=== PATIENT | male | born 1940 | race Caucasian/White ===

== ENCOUNTER 2018-09-27 08:43 | Observation (INO) | payer MEDICARE, OTHER ==
[~2018-09-27] VITALS: Ht 185.4 cm; Wt 72.7 kg
[2018-09-27 09:00] LABS: BASOPHILS # (AUTO) 0.1 10^3/uL (0.0-0.1); BASOPHILS % (AUTO) 1 % (0-10); EOSINOPHILS % (AUTO) 1 % (0-10); HEMATOCRIT 26 % (40-54); HEMOGLOBIN 8.6 G/DL (13.3-17.7); LYMPHOCYTES # (AUTO) 0.7 X 10^3 (1.0-4.0); LYMPHOCYTES % (AUTO) 15 % (12-44); MEAN CORPUSCULAR HEMOGLOBIN 33 PG (25-34); MEAN CORPUSCULAR HGB CONC 33 G/DL (32-36); MEAN CORPUSCULAR VOLUME 100 FL (80-99); MEAN PLATELET VOLUME 10.7 FL (7.4-10.4); MONOCYTES # (AUTO) 0.4 X 10^3 (0.0-1.0); MONOCYTES % (AUTO) 9 % (0-12); NEUTROPHILS # (AUTO) 3.5 X 10^3 (1.8-7.8); NEUTROPHILS % (AUTO) 75 % (42-75); RED CELL DISTRIBUTION WIDTH 23.8 % (10.0-14.5); WHITE BLOOD COUNT 4.7 10^3/uL (4.3-11.0)
[2018-09-27 09:02] LABS: PLATELET COUNT 37 10^3/uL (130-400)
[2018-09-27] MEDS ORDERED: NS IV 1000 ML 1,000 ML IV ONE (09:05)
[2018-09-27] MEDS ORDERED: TETANUS,DIPTH,PERTUSS P/F (BOOSTRIX) 0.5 ML VIAL IM ONE (09:15)
[2018-09-27 09:21] LABS: ALANINE AMINOTRANSFERASE < 6 U/L (0-55); ALBUMIN 3.3 GM/DL (3.2-4.5); ALKALINE PHOSPHATASE 50 U/L (40-136); BILIRUBIN,TOTAL 0.7 MG/DL (0.1-1.0); BUN/CREATININE RATIO 25; CALCIUM 8.7 MG/DL (8.5-10.1); CARBON DIOXIDE 23 MMOL/L (21-32); CHLORIDE 103 MMOL/L (98-107); CREATININE SERUM 1.01 MG/DL (0.60-1.30); GFR ESTIMATED > 60; GLUCOSE 93 MG/DL (70-105); MAGNESIUM 1.9 MG/DL (1.8-2.4); POTASSIUM 4.2 MMOL/L (3.6-5.0); SODIUM 133 MMOL/L (135-145); TOTAL PROTEIN 5.4 GM/DL (6.4-8.2)
--- NOTE | 2018-09-27 09:39 | ED General ---
General Chief Complaint: General Problems/Pain Stated Complaint: WEAKNESS Nursing Triage Note: TO ED PER [facility] FROM SON'S HOUSE. HE HAD GOT UP TO BATHROOM AND FEEL. EMS REPORTS THAT FAMILY SAID HE HAS BEEN WEAK. DAUGHTER IN LAW REPORTS THAT HE HAS HAD FELL AND WAS TAKEN TO [facility] AND FOUND OUT THAT MARISOL WAS TRANSFER TO [facility] FOR CARE. FAMILY GIVES POOR PMH AND PATIENT CAN NOT GIVE PMH. HAS AREA ON SIDE OF NECK THAT APPEARS TO BE A SCRATCH. Nursing Sepsis Screen: No Definite Risk Source of Information: Patient, EMS, Family Exam Limitations: No Limitations History of Present Illness Date Seen by Provider: Sep 27, 2018 Time Seen by Provider: 08:44 Initial Comments This 78-year-old gentleman presents to the emergency room via [facility] after having a fall at his son's home. Patient has been visiting family for a daughter's graduation, but he lives in [place]. Family reports he recently had a syncopal episode September 08 and was seen at [facility]. He was found to have a WBC count greater than 200,000. He was transferred to [place] for hematology/oncology treatment. He has been placed on oral chemotherapy by Dr. Benita Dukes. A bone marrow biopsy was reportedly done at [facility] in [place]. Family does not know the exact diagnosis. 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 Patient went to the restroom this morning and could not get himself back to bed. He then had a fall striking the left side of his face and scratching his right neck. Patient states his legs feel very weak and sometimes feel numb. He has no local primary care provider but family was hoping to get him in with Dr. Tanner. Patient is disoriented to place and date, and he is a confused historian. Allergies and Home Medications Allergies Coded Allergies: No Known Drug Allergies (Unverified , 09/27/18) Home Medications Allopurinol 300 Mg Tablet, 300 MG PO DAILY, (Reported) Amiodarone HCl 200 Mg Tablet, 200 MG PO 1800, (Reported) Aspirin 325 Mg Tablet.dr, 325 MG PO 1800, (Reported) Carbidopa/Levodopa 1 Each Capsule.er, 4 CAP PO 1800, (Reported) Cholecalciferol (Vitamin D3) 1,000 Unit Capsule, 1,000 UNIT PO 1800, (Reported) Citalopram Hydrobromide 40 Mg Tablet, 40 MG PO 1800, (Reported) Clopidogrel Bisulfate 75 Mg Tablet, 75 MG PO 1800, (Reported) Cranberry Extract/Vit C 1 Each Capsule, 2 CAP PO 1800, (Reported) Docusate Sodium 100 Mg Capsule, 300-400 MG PO 1800, (Reported) Fish Oil/Dha/Epa 1 Each Capsule, 1,200 MG PO 1800, (Reported) Hydroxyurea 500 Mg Capsule, 1,000 MG PO BID, (Reported) Levetiracetam 750 Mg Tablet, 750 MG PO 1800, (Reported) Levothyroxine Sodium 100 Mcg Tablet, 100 MCG PO 1800, (Reported) Lovastatin 40 Mg Tablet, 40 MG PO 1800, (Reported) Melatonin 3 Mg Tab.rapdis, 12 MG PO HS PRN for SLEEP, (Reported) Psyllium Husk 0.52 Gm Capsule, 2 CAP PO 1800, (Reported) [Terpenes Cbd Oil] , 2 DROPS PO HS, (Reported) Patient Home Medication List Home Medication List Reviewed: Yes Review of Systems Review of Systems Constitutional: see HPI, weakness EENTM: see HPI Respiratory: no symptoms reported Cardiovascular: no symptoms reported Gastrointestinal: no symptoms reported Genitourinary: other (patient uses a bladder stimulator) Musculoskeletal: see HPI Skin: see HPI Psychiatric/Neurological: See HPI Hematologic/Lymphatic: No Symptoms Reported Immunological/Allergic: no symptoms reported Past Ihtjeew-Eikuha-Bwgnnz Hx Past Med/Social Hx: Reviewed and Corrections made Patient Social History Alcohol Use: Denies Use Recreational Drug Use: No Smoking Status: Never a Smoker 2nd Hand Smoke Exposure: No Recent Foreign Travel: No Contact w/Someone Who Travel: No Recent Infectious Disease Expo: No Past Medical History Surgeries: Yes (skin cancer resection from the nose) Bladder Surgery (bladder stimulator), Cardiac (ablation), CABG, Coronary Stent, Orthopedic (hip with hardware, back), Vascular Surgery (IVC filter) Respiratory: No Cardiac: Yes Coronary Artery Disease, Hypertension Neurological: Yes Dementia, Seizure Disorder, Stroke Genitourinary: Yes Gastrointestinal: Yes Chronic Constipation Musculoskeletal: Yes Gout Endocrine: Yes Hypothyroidsim HEENT: No Cancer: Yes Leukemia, Skin Did You Recieve Any Treatments: Yes What Type of Treatment Did You: Chemotherapy, Surgical Intervention Psychosocial: No Integumentary: No Physical Exam Vital Signs Vital Signs - First Documented 09/27/18 08:44 Temp 98.0 Pulse 60 Resp 18 B/P (MAP) 106/58 (74) Pulse Ox 99 O2 Delivery Room Air Capillary Refill : Less Than 3 Seconds Height, Weight, BMI Height: 6'" Weight: 160lbs. oz. 72.026092bk; BMI Method:Estimated General Appearance: WD/WN, Other (very weak) HEENT: PERRL/EOMI, Other (mucous membranes dry. Hole in the left nose from cancer resection) Neck: Non Tender, Other (scratch on the right lateral neck) Respiratory: Lungs Clear, Normal Breath Sounds, No Accessory Muscle Use, No Respiratory Distress Cardiovascular: Regular Rate, Rhythm, No Edema, No Murmur Gastrointestinal: Normal Bowel Sounds, Non Tender, Soft Extremity: Normal Inspection, Non Tender, No Pedal Edema, Other (no hip pain with palpation or rotation) Neurologic/Psychiatric: Alert, Normal Mood/Affect, Motor Weakness (generalized) Skin: Normal Color, Warm/Dry, Other (abrasion and bruising on the left cheek. Scrape on the right neck) Progress/Results/Core Measures Suspected Sepsis Recent Fever Within 48 Hours: No Infection Criteria Present: None New/Unexplained Altered Menta: No Sepsis Screen: No Definite Risk SIRS Temperature:98.0 Pulse: 60 Respiratory Rate: 18 Laboratory Tests 09/27/18 08:50: White Blood Count 4.7 Blood Pressure 106 /58 Mean: 74 Laboratory Tests 09/27/18 08:50: Creatinine 1.01, Platelet Count 37*L, Total Bilirubin 0.7 Results/Orders Lab Results Laboratory Tests Test 09/27/18 08:50 09/27/18 10:50 Range/Units White Blood Count 4.7 4.3-11.0 10^3/uL Red Blood Count 2.63 L 4.35-5.85 10^6/uL Hemoglobin 8.6 L 13.3-17.7 G/DL Hematocrit 26 L 40-54 % Mean Corpuscular Volume 100 H 80-99 FL Mean Corpuscular Hemoglobin 33 25-34 PG Mean Corpuscular Hemoglobin Concent 33 32-36 G/DL Red Cell Distribution Width 23.8 H 10.0-14.5 % Platelet Count 37 *L 130-400 10^3/uL Mean Platelet Volume 10.7 H 7.4-10.4 FL Neutrophils (%) (Auto) 75 42-75 % Lymphocytes (%) (Auto) 15 12-44 % Monocytes (%) (Auto) 9 0-12 % Eosinophils (%) (Auto) 1 0-10 % Basophils (%) (Auto) 1 0-10 % Neutrophils # (Auto) 3.5 1.8-7.8 X 10^3 Lymphocytes # (Auto) 0.7 L 1.0-4.0 X 10^3 Monocytes # (Auto) 0.4 0.0-1.0 X 10^3 Eosinophils # (Auto) 0.0 0.0-0.3 10^3/uL Basophils # (Auto) 0.1 0.0-0.1 10^3/uL Sodium Level 133 L 135-145 MMOL/L Potassium Level 4.2 3.6-5.0 MMOL/L Chloride Level 103 98-107 MMOL/L Carbon Dioxide Level 23 21-32 MMOL/L Anion Gap 7 5-14 MMOL/L Blood Urea Nitrogen 25 H 7-18 MG/DL Creatinine 1.01 0.60-1.30 MG/DL Estimat Glomerular Filtration Rate > 60 BUN/Creatinine Ratio 25 Glucose Level 93 70-105 MG/DL Calcium Level 8.7 8.5-10.1 MG/DL Corrected Calcium 9.3 8.5-10.1 MG/DL Magnesium Level 1.9 1.8-2.4 MG/DL Total Bilirubin 0.7 0.1-1.0 MG/DL Aspartate Amino Transf (AST/SGOT) 14 5-34 U/L Alanine Aminotransferase (ALT/SGPT) < 6 0-55 U/L Alkaline Phosphatase 50 40-136 U/L Total Protein 5.4 L 6.4-8.2 GM/DL Albumin 3.3 3.2-4.5 GM/DL Thyroid Stimulating Hormone (TSH) 2.26 0.35-4.94 UIU/ML Free Thyroxine 1.14 0.70-1.48 NG/DL Urine Color YELLOW Urine Clarity CLEAR Urine pH 6.5 5-9 Urine Specific [place] 1.010 L 1.016-1.022 Urine Protein NEGATIVE NEGATIVE Urine Glucose (UA) NEGATIVE NEGATIVE Urine Ketones NEGATIVE NEGATIVE Urine Nitrite NEGATIVE NEGATIVE Urine Bilirubin NEGATIVE NEGATIVE Urine Urobilinogen NORMAL NORMAL MG/DL Urine Leukocyte Esterase NEGATIVE NEGATIVE Urine RBC (Auto) 2+ H NEGATIVE Urine RBC 2-5 H /HPF Urine WBC NONE /HPF Urine Squamous Epithelial Cells 0-2 /HPF Urine Crystals NONE /LPF Urine Bacteria TRACE /HPF Urine Casts NONE /LPF Urine Mucus NEGATIVE /LPF Urine Culture Indicated NO My Orders Orders - JERRI MILLS MD Cbc With Automated Diff (09/27/18 08:50) Comprehensive Metabolic Panel (09/27/18 08:50) Magnesium (09/27/18 08:50) Ua Culture If Indicated (09/27/18 08:50) Ed Iv/Invasive Line Start (09/27/18 08:50) Thyroid Stimulating Hormone (09/27/18 08:59) Free T4 (Free Thyroxine) (09/27/18 08:59) Ns Iv 1000 Ml (Sodium Chloride 0.9%) (09/27/18 09:05) Ct Head/Cervical Spine Wo (09/27/18 09:05) Chest 1 View, Ap/Pa Only (09/27/18 09:05) Pelvis (09/27/18 09:05) Dipht,Pertuss(Acell),Tet Adult (Boostrix (09/27/18 09:15) Medications Given in ED Current Medications Medications Dose Ordered Sig/Alfredo Route Start Time Stop Time Status Last Admin Dose Admin Diphtheria/ Tetanus/Acell Pertussis 0.5 ml ONCE ONCE IM 09/27/18 09:15 09/27/18 09:16 DC 09/27/18 10:00 0.5 ML Sodium Chloride 1,000 ml @ 0 mls/hr Q0M ONCE IV 09/27/18 09:05 09/27/18 09:08 DC 09/27/18 10:00 1,000 MLS/HR Vital Signs/I&O 09/27/18 08:44 Temp 98.0 Pulse 60 Resp 18 B/P (MAP) 106/58 (74) Pulse Ox 99 O2 Delivery Room Air Capillary Refill : Less Than 3 Seconds Blood Pressure Mean: 74 Progress Note : Progress Note Patient was found to have thrombocytopenia and anemia. He was unable to bear weight on his own to stand to provide a urine specimen. He is generally quite weak. There were no major abnormalities with his chemistry. CT of the head and C-spine and x-rays of the chest and pelvis showed no injuries. There was questionable infiltrate on the chest x-ray, but pneumonia does not correlate with labs or vitals. The chest x-ray findings are likely due to atelectasis. Case was discussed with Dr. Mckenzie who is agreeable to admission. Patient was cleared from a trauma perspective with CT imaging. Dr. Sher was consulted for hematology. A records request from [facility] in [place] was placed on the admission orders. Patient requested a DO NOT RESUSCITATE status. Diagnostic Imaging Diagonstic Imaging: Xray Plain Films/CT/US/NM/MRI: chest Comments Chest x-ray viewed by me and report reviewed. See report below: NAME: ELVIS RAMOS [facility] REC#: [id number] PT STATUS: REG ER : 1940 PHYSICIAN: JERRI MILLS MD ADMIT DATE: 09/27/18/ER Draft Date of Exam:09/27/18 CHEST 1 VIEW, AP/PA ONLY EXAMINATION: Supine AP chest at 9:50 a.m. INDICATION: Weakness. COMPARISON: There are no prior studies available for comparison. FINDINGS: The heart size is within normal limits. There are a few crowded bronchovascular markings in the left infrahilar region. The possibility that there is an element of mild pneumonia/atelectasis in this area should be considered. The lungs are otherwise clear. There is no pleural effusion noted. The mediastinum is not widened. The osseous structures are intact. There are number of small radiopaque densities overlying the lower thoracic spine. These are of uncertain etiology. If further evaluation is desired, then a followup PA and lateral chest would be recommended. IMPRESSION: 1. There is a question of mild pneumonia/atelectasis in the left infrahilar region. Clinical followup is recommended. 2. There is no acute cardiopulmonary abnormality noted, otherwise. 3. The radiopaque densities overlying the lower thoracic spine are of uncertain etiology. Recommendations as above. Dictated on workstation # [id number] Dict: 09/27/18 1001 Trans: 09/27/18 1014 [id number] [id number] Interpreted by: PAKO BARRERA MD Diagonstic Imaging: Xray Plain Films/CT/US/NM/MRI: pelvis Comments Pelvis x-ray viewed by me and report reviewed. See report below: NAME: ELVIS RAMOS MED REC#: [id number] PT STATUS: REG ER : 1940 PHYSICIAN: JERRI MILSL MD ADMIT DATE: 09/27/18/ER Draft Date of Exam:09/27/18 PELVIS EXAMINATION: Pelvis at 940h. INDICATION: Weakness A single AP view of the pelvis is obtained. There are no prior studies available for comparison. There is no fracture, dislocation or acute bony abnormality evident. There is moderate degenerative disease involving the hip joints and there is mild symmetrical scoliosis of the sacral iliac joints. The soft tissues are unremarkable. There are orthopedic fixation rods overlying L4 and L5. There is also a dorsal stimulator device in place with the battery pack overlying the right ilium and the lead overlying the left sacrum. Another surgical wire is also seen to the right of the lower lumbar spine. IMPRESSION: There is no evidence for an acute bony abnormality. Dictated on workstation # [id number] Dict: 09/27/18 1003 Trans: 09/27/18 1010 [facility] [id number] Interpreted by: PAKO BARRERA MD Diagonstic Imaging: CT Comments CT head and cervical spine viewed by me and report reviewed. See report below: NAME: ELVIS RAMOS MED REC#: [id number] PT STATUS: REG ER : 1940 PHYSICIAN: JERRI MILLS MD ADMIT DATE: 09/27/18/ER Draft Date of Exam:09/27/18 CT HEAD/CERVICAL SPINE WO CLINICAL INDICATION: Patient is weak, been falling and has hit head when falling. EXAM: Head CT without IV contrast. Axial CT scan of the cervical spine with sagittal and coronal reformations. COMPARISON: None. FINDINGS: Head CT: There is no evidence of acute cerebral infarct, intracranial hemorrhage, or gross mass effect. There is diffuse brain parenchymal volume loss seen. There are a few focal and patchy areas of low-attenuation white matter changes involving both cerebral hemispheres, likely representing chronic small vessel ischemic disease. There is normal bustos-white matter distinction. There is no significant midline shift or herniation. There is no evidence of hydrocephalus. The basal cisterns are unremarkable. The skull, extracranial soft tissue, and orbits are unremarkable. There is a small air-fluid level and moderate mucosal thickening involving the right maxillary sinus. There is mild mucosal thickening involving the ethmoid sinus and left maxillary sinus. Temporal bones show no significant abnormality. Cervical spine: There is no acute cervical spine fracture or dislocation. There are moderately hypertrophic spurs seen throughout the cervical spine and facet arthropathy. There is severe left C3-C4 neuroforamen narrowing and moderate right C3-C4 neuroforamen narrowing and right C4-C5 neuroforamen narrowing due to uncinate spurs and facet arthropathy. There is at least moderate central canal stenosis at the C2-C3, C3-C4, and [id number] central canal stenosis involving the C4-C5 and C5-C6 levels due to diffuse disc bulges, disc spurs, and facet arthropathy. The neck soft tissue structures show no significant abnormality. Visualized upper lung tavarez show mild atelectasis and/or scarring. IMPRESSION: 1: Age-related brain parenchymal changes with no evidence of acute intracranial process. There is no skull fracture. 2: Cervical spine degenerative disease with no acute fracture or dislocation. Dictated on workstation # [id number] Dict: 09/27/18 0951 Trans: 09/27/18 1005 AS6 [id number] Interpreted by: RAFAL GUTIERRES MD Departure Communication (Admissions) Time/Spoke to Admitting Phy: 11:30 Dr. Mckenzie Time/Spoke to Consulting Phy: 11:35 Dr. Sher Impression Primary Impression: CML (chronic myelocytic leukemia) Additional Impressions: Generalized weakness Multiple falls Thrombocytopenia Anemia Qualified Codes: D64.9 - Anemia, unspecified Multiple abrasions Disposition: ADMITTED INPATIENT Condition: Improved Admissions Decision to Admit Reason: Admit from ER (General) Decision to Admit/Date: Sep 27, 2018 Time/Decision to Admit Time: 11:25 JERRI MILLS MD Sep 27, 2018 09:39
[2018-09-27 09:42] LABS: FREE T4 (FREE THYROXINE) 1.14 NG/DL (0.70-1.48)
--- NOTE | 2018-09-27 09:45 | NUR ---
MED RECONCILE TECH CALLED TO COME REVIEW MEDS. WITH FAMILY.
--- NOTE | 2018-09-27 10:06 | Diagnostic Imaging Report ---
CLINICAL INDICATION: Patient is weak, been falling and has hit head when falling. EXAM: Head CT without IV contrast. Axial CT scan of the cervical spine with sagittal and coronal reformations. COMPARISON: None. FINDINGS: Head CT: There is no evidence of acute cerebral infarct, intracranial hemorrhage, or gross mass effect. There is diffuse brain parenchymal volume loss seen. There are a few focal and patchy areas of low-attenuation white matter changes involving both cerebral hemispheres, likely representing chronic small vessel ischemic disease. There is normal bustos-white matter distinction. There is no significant midline shift or herniation. There is no evidence of hydrocephalus. The basal cisterns are unremarkable. The skull, extracranial soft tissue, and orbits are unremarkable. There is a small air-fluid level and moderate mucosal thickening involving the right maxillary sinus. There is mild mucosal thickening involving the ethmoid sinus and left maxillary sinus. Temporal bones show no significant abnormality. Cervical spine: There is no acute cervical spine fracture or dislocation. There are moderately hypertrophic spurs seen throughout the cervical spine and facet arthropathy. There is severe left C3-C4 neuroforamen narrowing and moderate right C3-C4 neuroforamen narrowing and right C4-C5 neuroforamen narrowing due to uncinate spurs and facet arthropathy. There is at least moderate central canal stenosis at the C2-C3, C3-C4, and [id number] central canal stenosis involving the C4-C5 and C5-C6 levels due to diffuse disc bulges, disc spurs, and facet arthropathy. The neck soft tissue structures show no significant abnormality. Visualized upper lung tavarez show mild atelectasis and/or scarring. IMPRESSION: 1: Age-related brain parenchymal changes with no evidence of acute intracranial process. There is no skull fracture. 2: Cervical spine degenerative disease with no acute fracture or dislocation. Dictated by: Dictated on workstation # [id number]
[2018-09-27] MEDS ORDERED: CLOP75TA69 PO (10:09)
[2018-09-27] MEDS ORDERED: AMIO200T4 PO (10:09)
[2018-09-27] MEDS ORDERED: ASPI325T32 PO (10:09)
[2018-09-27] MEDS ORDERED: LEVO100T7 PO (10:09)
[2018-09-27] MEDS ORDERED: MELA3TAB52 PO (10:09)
[2018-09-27] MEDS ORDERED: CHOL10007 PO (10:09)
[2018-09-27] MEDS ORDERED: DOCU-143 PO (10:09)
[2018-09-27] MEDS ORDERED: FISH1CAP15 PO (10:09)
[2018-09-27] MEDS ORDERED: ALLO300T2 PO (10:09)
[2018-09-27] MEDS ORDERED: LEVE750T5 PO (10:09)
[2018-09-27] MEDS ORDERED: CRAN1CAP5 PO (10:09)
[2018-09-27] MEDS ORDERED: HYDR500C2 PO (10:09)
[2018-09-27] MEDS ORDERED: [UNRECOGNIZED DRUG - CODE] PO (10:09)
[2018-09-27] MEDS ORDERED: [UNRECOGNIZED DRUG - OTHER] PO (10:09)
[2018-09-27] MEDS ORDERED: CITA40TA11 PO (10:09)
[2018-09-27] MEDS ORDERED: LOVA40TA2 PO (10:09)
[2018-09-27] MEDS ORDERED: CARB1CAP5 PO (10:09)
--- NOTE | 2018-09-27 10:11 | Diagnostic Imaging Report ---
EXAMINATION: Pelvis at 940h. INDICATION: Weakness A single AP view of the pelvis is obtained. There are no prior studies available for comparison. There is no fracture, dislocation or acute bony abnormality evident. There is moderate degenerative disease involving the hip joints and there is mild symmetrical scoliosis of the sacral iliac joints. The soft tissues are unremarkable. There are orthopedic fixation rods overlying L4 and L5. There is also a dorsal stimulator device in place with the battery pack overlying the right ilium and the lead overlying the left sacrum. Another surgical wire is also seen to the right of the lower lumbar spine. IMPRESSION: There is no evidence for an acute bony abnormality. Dictated by: Dictated on workstation # [id number]
--- NOTE | 2018-09-27 10:14 | Diagnostic Imaging Report ---
EXAMINATION: Supine AP chest at 9:50 a.m. INDICATION: Weakness. COMPARISON: There are no prior studies available for comparison. FINDINGS: The heart size is within normal limits. There are a few crowded bronchovascular markings in the left infrahilar region. The possibility that there is an element of mild pneumonia/atelectasis in this area should be considered. The lungs are otherwise clear. There is no pleural effusion noted. The mediastinum is not widened. The osseous structures are intact. There are number of small radiopaque densities overlying the lower thoracic spine. These are of uncertain etiology. If further evaluation is desired, then a followup PA and lateral chest would be recommended. IMPRESSION: 1. There is a question of mild pneumonia/atelectasis in the left infrahilar region. Clinical followup is recommended. 2. There is no acute cardiopulmonary abnormality noted, otherwise. 3. The radiopaque densities overlying the lower thoracic spine are of uncertain etiology. Recommendations as above. Dictated by: Dictated on workstation # [id number]
--- NOTE | 2018-09-27 10:36 | NUR ---
SPOKE WITH THE PATIENTS FAMILY THAT IS PRESENT WITH HIM REGARDING THE MEDICATIONS HE TAKES AT HOME. THEY HAVE ALL OF HIS BOTTLES HERE WELL THE PILL BOX FOR HIS EVENING MEDS. THEY ALSO HAVE A LIST FROM [facility] HOWEVER IT IS NOT COMPLETELY UP TO DATE WITH THE BOTTLES THEY BROUGHT IN. HE CAME TO [place] FROM [place] FOR A GRADUATION AND IT DOES NOT LOOK LIKE THEY WILL BE RETURNING TO [place] DUE TO THE CARE HE NEEDS. THEY USED [facility] IN [place] AND PLAN TO USE [facility] HERE IN [place] IN THE FUTURE. THEY DID HAVE TWO NEW PRESCRIPTIONS FILLED AT [facility] IN [place] WHICH THEY HAVE THE BOTTLES WITH THEM. ELDER IS HERE AND STATES HE TAKES ALL OF THE PILLS IN THE PILL ACTIVITIES COUNSELOR SHE HAS WITH HER AT DINNER TIME. THE ONLY THINGS HE TAKES IN THE MORNING ARE THE NEW ALLOPURINOL AND THE MORNING DOSE OF THE HYDROXYUREA WHICH ARE THE TWO NEW MEDS FROM [facility]. HE WAS TAKING METAMUCIL POWDER IN THE MORNING BUT THEY ARE GOING TO STOP THIS DUE TO HIM GOING TO THE BATHROOM FREQUENTLY, HE IS STILL TAKING THE METAMUCIL CAPSULES AT DINNER TIME. MARYANNE, A FRIEND OF THE FAMILY IS THE ONE WHO SETS UP THE PILL BOX AND GIVE THE MEDICATIONS TO THE PATIENT, SHE IS NOT HERE FOR THE INTERVIEW. ELDER STATES SHE IS FAMILIARIZING HERSELF WITH THE MEDS AND PLANS TO MAKE HER OWN DETAILED LIST AFTER THIS VISIT. [facility] BOTTLES: 09-15-18 ALLOPURINOL 300MG #30 09-15-18 HYDROXYUREA 500MG 2 BID #120 [email or web address] [id number] [place] BOTTLES: 08-25-18 LEVOTHYROXINE 100MCG DAILY #90 08-25-18 RYTARY ER 48.75-195MG 4 CAPSULES BID #240 (ONLY TAKES 4 CAPS AT DINNER TIME) 08-08-18 LOVASTATIN 40MG DAILY #90 08-08-18 CITALOPRAM 40MG DAILY #90 08-02-18 AMIODARONE 200MG DAILY #90 08-02-18 PLAVIX 75MG DAILY #90 08-02-18 LEVETIRACETAM 750MG DAILY #90 OTC MEDS: TERPENES CBD OIL 2 DROPS HS WAL-MUCIL 2 CAPS 1800 AZO CRANBERRY 2 1800 FISH OIL 1200MG 1 1800 VITAMIN D3 1000 1800 COLACE 100MG 3-4 1800 MELATONIN 12MG HS PRN ASPIRIN 325MG 1800
--- NOTE | 2018-09-27 10:38 | NUR ---
[employer] FRONT END DEVELOPER JAVASCRIPT HTML CSS TO BEDSIDE TO HELP PATIENT STAND TO OBTAIN UA.
[2018-09-27 11:05] LABS: BILIRUBIN,URINE NEGATIVE (NEGATIVE); CLARITY,URINE CLEAR; COLOR,URINE YELLOW; GLUCOSE, URINE (UA) NEGATIVE (NEGATIVE); KETONES,URINE NEGATIVE (NEGATIVE); LEUKOCYTE ESTERASE ,URINE NEGATIVE (NEGATIVE); NITRITE,URINE NEGATIVE (NEGATIVE); PH,URINE 6.5 (5-9); PROTEIN,URINE NEGATIVE (NEGATIVE); UROBILINOGEN,URINE NORMAL (NORMAL)
[2018-09-27 11:14] LABS: BACTERIA,URINE TRACE /HPF; SQUAMOUS EPITHELIAL CELL,UR 0-2 /HPF
--- NOTE | 2018-09-27 11:49 | NUR ---
CALLED FOR ROOM
--- NOTE | 2018-09-27 11:53 | NUR ---
TO ROOM PATIENT CON'T TO BEND ARM CAUSING FLUIDS NOT TO INFUSE. ARM STRAIGHTENED OUT FLUIDS INFUSING WITHOUT PROBLEM.
[2018-09-27 12:45] VITALS: BP 136/67
--- NOTE | 2018-09-27 12:45 | NUR ---
ELVIS AVALOS admitted to room 431-1, with an admitting diagnosis of THROMBOCYTOPENIA, ANEMIA, CML, GENERALIZED WEAKNESS, FALL, on 09/27/18 from ER via [facility], accompanied by STAFF AND FAMILY.ELVIS AVALOS introduced to surroundings, call light, bed controls, phone, TV, temperature control, lights, meal times, smoking policy, visitor policy, side rail policy, bathrooms and showers. Patient Rights given to patient in the handbook. ELVIS AVALOS'S FAMILY verbalizes understanding that [facility] is not responsible for the loss or damage to any personal effects or valuables that are kept in the patients posession during their hospitalization. ELVIS AVALOS'S FAMILY verbalizes understanding of Interdisciplinary Patient Education. Patient and/or family were informed about the Rapid Response Team and its purpose.
[2018-09-27] MEDS ORDERED: CATHETER FLUSH 10 ML SYR IV PRN (13:00)
[2018-09-27 13:47] VITALS: BP 136/67
--- NOTE | 2018-09-27 14:27 | Physical Therapy Evaluation ---
PT Evaluation-General Medical Diagnosis Admission Date Sep 27, 2018 at 11:54 Medical Diagnosis: CML/generalized weakness Onset Date: Sep 27, 2018 Therapy Diagnosis Therapy Diagnosis: debility Height/Weight Height (Feet): 6 Height (Inches): 1.00 Weight (Pounds): 160 Weight (Ounces): 3.0 Precautions Precautions/Isolations: Fall Prevention, Standard Precautions Weight Bear Status Right Lower Extremity: Right Weight Bearing/Tolerated Left Lower Extremity: Left Weight Bearing/Tolerated Referral Physician: Magaly Reason for Referral: Evaluation/Treatment Medical History Pertinent Medical History: CAD, CVA, Dementia, HTN, Hypothroidism Current History EMS from [facility] has been in [facility] then transferred to [place] secondary to Leukemia/multiple falls Reviewed History: Yes Social History Home: Single Level Current Living Status: Other Family Prior/[facility]ly [facility] Prior Level of Function Therapy Code Descriptions/Definitions Functional [place] [employer] Measure: 0=Not Assessed/NA 4=Minimal Assistance 1=Total Assistance 5=Supervision or Setup 2=Maximal Assistance 6=Modified [employer] 3=Moderate Assistance 7=Complete [employer] Therapy Quality Codes: 6 Independent with activity with or without an assistive device 5 Patient requires set up or clean up by helper. Patient completes activity by themselves 4 Supervision or touching assist (CGA). [place] provide cues , steadying assist 3 The helper provides less than half the effort to complete the activity 2 The helper provides more than half the effort to complete the activity 1 Dependent. The helper does all the effort to complete an activity 7 Patient refused to complete or attempt activity 9 The patient did not perform the activity before the current illness or injury 88 Not attempted due to Medical conditions or safety concerns Functional Abilities and Goals: Independent: Patient completed the activities by him/herself, with or without an assistive device, with no assistance from a helper. Needed Some Help: Patient needed partial assistance from another person to complete activities. Dependent: A helper completed the activities for the patient. Unknown: Not Applicable: Bed Mobility: 6 Transfers (B,C,W/C) (FIM): 6 Gait: 6 Indoor Mobility (Ambulation): Independent Prior Devices Use: Walker PT Evaluation-Current Subjective Patient reluctantly agrees to PT. Pain Numeric Pain Scale: 0-No Pain Location: No Pain Reported Objective Patient Orientation: Confused Problem Solving: Poor ROM/Strength ROM Lower Extremities bilateral LE WFL Strength Lower Extremities 4/5 grossly bilaterally Integumentary/Posture Integumentary multiple abrasions on face and neck Bowel Incontinence: No Bladder Incontinence: No Posture WFL Neuromuscular (Tone, Coordination, Reflexes) grossly intact Sensory Vision: Functional Hearing: Impaired Sensation Right Lower Extremit: Impaired Sensation Left Lower Extremity: Impaired Transfers Therapy Code Descriptions/Definitions Functional [employer] Measure: 0=Not Assessed/NA 4=Minimal Assistance 1=Total Assistance 5=Supervision or Setup 2=Maximal Assistance 6=Modified [employer] 3=Moderate Assistance 7=Complete [employer] Transfers (B, C, W/C) (FIM): 5 Scootin Rollin Supine to/from Sit: 5 Sit to/from Stand: 5 Gait Mode of Locomotion: Walk Anticipated Mode of Locomotion: Walk Gait (FIM): 1 Distance (FIM): 1=up to 49 ft Distance: 25' x 2 Gait Level of Assist: 4 Gait Persons Needed: 1 Gait Assistive Device: FWW Comments/Gait Description shuffle gait sequence with FWW use Balance Sitting Static: Normal Sitting Dynamic: Normal Standing Static: Fair Standing Dynamic: Fair Assessment/Needs 78 y.o. male, benefit from skilled PT to address functional strength and mobility to improve current LOF. Patient is limited due to confusion and difficulty following simple direction. Patient is at a high fall risk and chair alarm is set and activated. Rehab Potential: Fair PT [facility] Goals Senior Office Assistant Goals PT Senior Office Assistant Goals Time Frame: Oct 08, 2018 Transfers (B,C,W/C) (FIM): 6 Gait (FIM): 6 Gait distance (FIM): 3=150 ft Distance: 250' Gait Level of Assist: 6 Gait Assistive Device: FWW PT Plan Problem List Problem List: Activity Tolerance, Functional Strength, Safety, Balance, Gait, Transfer, Bed Mobility Treatment/Plan Treatment Plan: Continue Plan of Care Treatment Plan: Bed Mobility, Education, Functional Activity Jefry, Functional Strength, Gait, Safety, Therapeutic Exercise, Transfers Treatment Duration: Oct 08, 2018 Frequency: 6 times per week Estimated Hrs Per Day: .25 hour per day Patient and/or Family Agrees t: Yes Safety Risks/Education Patient Education: Safety Issues Teaching Recipient: Patient Teaching Methods: Demonstration, Discussion Response to Teaching: Reinforcement Needed Discharge Recommendations Therapy D/C Recommendations: Detention Placement, [facility] (TCU/NH) Time/GCodes Time In: 1320 Time Out: 1343 Total Billed Treatment Time: 23 Total Billed Treatment 1 visit EVModC 23 min CJ ALVAREZ PT Sep 27, 2018 14:27
--- NOTE | 2018-09-27 14:33 | Occupational Therapy Eval ---
OT Evaluation-General/PLF Medical Diagnosis Admission Date Sep 27, 2018 at 11:54 Medical Diagnosis: CML/generalized weakness Onset Date: Sep 27, 2018 Therapy Diagnosis Therapy Diagnosis: impaired ADLs and mobility Height/Weight Height (Feet): 6 Height (Inches): 1.00 Weight (Pounds): 160 Weight (Ounces): 3.0 Precautions Precautions/Isolations: Fall Prevention, Standard Precautions Weight Bear Status Weight Bearing Restriction: Weight Bearing/Tolerated Referral Referral Reason: Activity Tolerance, Self Care, Evaluation/Treatment, Strengthening/ROM Medical History Pertinent Medical History: DM Additional Medical History Surgeries: Yes (skin cancer resection from the nose) Bladder Surgery (bladder stimulator), Cardiac (ablation), CABG, Coronary Stent, Orthopedic (hip with hardware, back), Vascular Surgery (IVC filter) Respiratory: No Cardiac: Yes Coronary Artery Disease, Hypertension Neurological: Yes Dementia, Seizure Disorder, Stroke Genitourinary: Yes Gastrointestinal: Yes Chronic Constipation Musculoskeletal: Yes Gout Endocrine: Yes Hypothyroidsim HEENT: No Cancer: Yes Leukemia, Skin Did You Recieve Any Treatments: Yes What Type of Treatment Did You: Chemotherapy, Surgical Intervention Psychosocial: No Integumentary: No Current History per H&P: "his 78-year-old gentleman presents to the emergency room via [facility] after having a fall at his son's home. Patient has been visiting family for a daughter's graduation, but he lives in [place]. Family reports he recently had a syncopal episode September 08 and was seen at [place]. He was found to have a WBC count greater than 200,000. He was transferred to [place] for hematology/oncology treatment. He has been placed on oral chemotherapy by Dr. Benita Dukes. A bone marrow biopsy was reportedly done at [place] in [place]. Family does not know the exact diagnosis. 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 P atient went to the restroom this morning and could not get himself back to bed. He then had a fall striking the left side of his face and scratching his right neck. Patient states his legs feel very weak and sometimes feel numb. He has no local primary care provider but family was hoping to get him in with Dr. Tanner. Patient is disoriented to place and date, and he is a confused historian. " Reviewed History: Yes Social History pt poor historian and not oriented. pt lives n [place] and was visiting family. pt stated he quijano not know where he will d/c to . ADL-Prior Level of Function Therapy Code Descriptions/Definitions Functional [place] Measure: 0=Not Assessed/NA 4=Minimal Assistance 1=Total Assistance 5=Supervision or Setup 2=Maximal Assistance 6=Modified [place] 3=Moderate Assistance 7=Complete [place] Therapy Quality Codes: 6 Independent with activity with or without an assistive device 5 Patient requires set up or clean up by helper. Patient completes activity by themselves 4 Supervision or touching assist (CGA). [place] provide cues , steadying ass ist 3 The helper provides less than half the effort to complete the activity 2 The helper provides more than half the effort to complete the activity 1 Dependent. The helper does all the effort to complete an activity 7 Patient refused to complete or attempt activity 9 The patient did not perform the activity before the current illness or injury 88 Not attempted due to Medical conditions or safety concerns Functional Abilities and Goals: Independent: Patient completed the activities by him/herself, with or without an assistive device, with no assistance from a helper. Needed Some Help: Patient needed partial assistance from another person to complete activities. Dependent: A helper completed the activities for the patient. Unknown: Not Applicable: Self Care: Independent Functional Cognition: Independent DME/Equipment: [address] Self: No OT Current Status Subjective pt laying in be upon OT arrival in no apparent distress. pt agreed to OT evaluation session. pt complains on 2/10 abdomen pain. NSG aware. Mental Status/Objective Patient Orientation: Person Current Glasses/Contacts: Yes Hearing Aids: No ([place]) Dentures/Partials: Yes Hand Dominance: Right Upper Extremity ROM WFL Upper Extremity Coordination WFL Upper Extremity Sensation WFL Upper Extremity Strength MMT 4-/5 macarena UE ADL-Treatment Therapy Code Descriptions/Definitions Functional [place] Measure: 0=Not Assessed/NA 4=Minimal Assistance 1=Total Assistance 5=Supervision or Setup 2=Maximal Assistance 6=Modified [place] 3=Moderate Assistance 7=Complete [place] Therapy Quality Codes: 6 Independent with activity with or without an assistive device 5 Patient requires set up or clean up by helper. Patient completes activity by themselves 4 Supervision or touching assist (CGA). [place] provide cues , steadying assist 3 The helper provides less than half the effort to complete the activity 2 The helper provides more than half the effort to complete the activity 1 Dependent. The helper does all the effort to complete an activity 7 Patient refused to complete or attempt activity 9 The patient did not perform the activity before the current illness or injury 88 Not attempted due to Medical conditions or safety concerns Transfers (B, C, W/C) (FIM): 4 pt required TA to perform LB dressing, CGA for functional transfers using RW, and set up for eating and grooming. noted pt is confused. pt complains of dizziness while performing functional mobility. Education OT Patient Education: Progress toward Goal/Update tx plan, Purpose of tx/functional activities Teaching Recipient: Patient Teaching Methods: Discussion Response to Teaching: Verbalize Understanding OT Short Term Goals Short Term Goals Grooming(FIM): 5 Bathing(FIM): 5 Lower Body Dressing(FIM): 5 Toileting(FIM): 5 Transfers (B,C,W/C) (FIM): 5 Toilet/Commode Transfer(FIM): 5 1=Demonstrate adherence to instructed precautions during ADL tasks. 2=Patient will verbalize/demonstrate understanding of assistive devices/modifications for ADL. 3=Patient will improve strength/tolerance for activity to enable patient to perform ADL's. OT Senior Care Goals Senior Care Goals Eating (FIM): 6 Grooming(FIM): 6 Bathing(FIM): 6 Bathing Location: L Arm, R Arm, L Upper Leg, R Upper Leg, L Lower Leg (including foot), R Lower Leg (including foot), Chest, Abdomen, Buttocks, Perineal Area Lower Body Dressing(FIM): 6 Toileting(FIM): 6 Transfers (B,C,W/C) (FIM): 6 Toilet/Commode Transfer(FIM): 6 Additional Goals: 1-Demonstrate ADL Tasks, 2-Verbalize Understanding, 3- ImproveStrength/Jefry 1=Demonstrate adherence to instructed precautions during ADL tasks. 2=Patient will verbalize/demonstrate understanding of assistive devices/ modifications for ADL. 3=Patient will improve strength/tolerance for activity to enable patient to perform ADL's. OT Education/Plan Problem List/Assessment Assessment: Decreased Activ Tolerance, Decreased Safety Aware, Decreased UE Strength, Impaired Coordination, Impaired Funct Balance, Impaired I ADL's pt presents with functional limitations affecting areas of ADL/ functional transfer with above mention deficits. pt would benefit from OT services to increase independence with ADLs/ functional transfers. Discharge Recommendations Plan/Recommendations: Continue POC Barriers to Progress cognition Treatment Plan/Plan of Care Treatment,Training & Education: Yes Patient would benefit from OT for education, treatment and training to promote independence in ADL's, mobility, safety and/or upper extremity function for ADL's. Treatment Duration: Oct 11, 2018 Frequency: 5 times per week Estimated Hrs Per Day: .25 hour per day Agreement: Yes Rehab Potential: Fair Time/GCodes Start Time: 14:05 Stop Time: 14:30 Billed Treatment Time EVM 25 minutes NGOZI FRANCIS OT Sep 27, 2018 14:33
[2018-09-27] MEDS: CATHETER FLUSH 10 ML SYR IV SCH ×2 (15:00→20:33)
[2018-09-27 15:25] VITALS: BP 133/58
--- NOTE | 2018-09-27 19:29 | CONSULTATION REPORT ---
DATE OF SERVICE: 09/27/2018 The patient is admitted to room 431. REFERRING PHYSICIAN: Luke Mckenzie MD IMPRESSION: 1. An 78-year-old male, admitted to the hospital with increasing weakness and fall at home. 2. Significant dementia and the patient is unable to give any detailed history. 3. Per family, the patient was recently diagnosed with leukemia. He had a bone marrow aspiration and biopsy done at [facility] in [place], [place] approximately 2 weeks ago. Following this, he was started on hydroxyurea 1000 mg twice daily, which he has been taking until last night. 4. Thrombocytopenia and borderline leukopenia as well as anemia, probably related to hydroxyurea use. 5. No other medical history available. RECOMMENDATIONS: 1. Obtain the pathology report from bone marrow aspiration and biopsy done two weeks ago at [facility] in [place], [place]. 2. Hold hydroxyurea because of the pancytopenia. 3. Continue supportive care with IV hydration gently along with PT/OT for strengthening. 4. Agree with maintaining the patient as a DNR. 5. Once the pathology report from the bone marrow aspiration and biopsy is available, I will make further recommendations as to the prognosis and treatment options. BRIEF HISTORY: The patient is an 78-year-old male who was brought to the emergency room after having a fall at home. He previously lived in [place] most of his life, but recently came to [place], [place] to attend his granddaughter's high school graduation. He became sick while he was here and was taken to [facility] in [place]. He was sent to [facility] in [place] where he was admitted and underwent a workup including bone marrow aspiration and biopsy. Following this, he was started on hydroxyurea 1000 mg twice daily. Since then, he was becoming weaker and had a fall at home following which he was brought to [facility]. The patient is unable to provide any detailed history because of dementia. His granddaughter is in the room at the time of evaluation and provided most of the history. The patient's son who lives in [place], [place] is his medical power of attorney general, but he is in [place] now. According to his granddaughter, the patient has had worsening dementia for several years. He was also noted to have an elevated white count for some time, but was not on any treatment or did not undergo any evaluation while in [place]. Rest of the past medical history is not available. No details on prior surgical history also. SOCIAL HISTORY: The patient is and was living [place]. He served in the [place] for two years and since then has worked different jobs including in the [employer], as a master welder and as a salesman. Unable to obtain any history of exposure to chemicals during his line of work. He has 8 children, were [place]. Details of family history was not available today. PHYSICAL EXAMINATION: GENERAL: Today showed an elderly male, awake, but not completely oriented, weak appearing, in no acute distress. VITAL SIGNS: Temperature was 97.5, pulse rate of 54, respirations 20, blood pressure 136/67 with oxygen saturation of 100% on room air. HEENT: Normocephalic with male pattern baldness, extraocular muscles intact, conjunctivae are slightly pale, oral mucosa slightly dry, small laceration on the left cheek. NECK: Supple, with no JVD. No cervical, supraclavicular or axillary lymphadenopathy palpable. CHEST: Symmetrical. LUNGS: Fairly clear to auscultation without wheezes or rales. ABDOMEN: Soft, nontender with no hepatosplenomegaly or other masses palpable. EXTREMITIES: Showed significant ecchymosis on both forearms dorsally. No petechiae noted. NEUROLOGIC: Showed no focal motor deficits. The patient is moving all 4 extremities. LABORATORY DATA: CBC done today showed total white count of 4.7, hemoglobin 8.6 and platelet count 37,000 with neutrophil count 3.5, lymphocyte count 0.7 and monocyte count 0.4. Chemistry panel showed sodium level of 133 with rest of the electrolytes within normal limits. BUN was 25 and creatinine 1.01 with GFR more than 60 mL per minute. Liver function studies were within normal limits. Albumin was 3.3. TSH was 2.26. UA was unremarkable. Chest x-ray done at the emergency room showed mild atelectasis/infiltrates in the left infrahilar region. No acute cardiopulmonary abnormality noted. The patient had a CT scan of the head and C-spine. CT scan of the head showed age-related brain parenchymal changes with no evidence of acute intracranial process. There were no skull fractures. Degenerative changes of C-spine with no acute fractures or dislocation noted. Plain x-ray of the pelvis showed no evidence of acute bony abnormality. Thank you for allowing me to participate in this patient's care. I will follow the patient with you and make appropriate recommendations. Job ID: [id number] DocumentID: [id number] Dictated Date: 09/27/2018 16:54:19 Concrete Tile Machine Operator Date: 09/27/2018 19:28:27 Dictated By: CLOTILDE MARKS MD
[2018-09-27 20:30] VITALS: BP 110/53
[2018-09-27 21:13] VITALS: BP 110/53
[2018-09-27] MEDS ORDERED: PSYLLIUM POWDER (METAMUCIL) 5.8 GM PACKET ONE (21:28)
--- NOTE | 2018-09-27 21:30 | NUR ---
Granddaughter requesting Metamucil for pt. New order rec from Dr. Mckenzie for Metamucil daily.
[2018-09-27] MEDS: PSYLLIUM POWDER (METAMUCIL) 5.8 GM PACKET PO SCH (21:44)
[2018-09-28 00:50] VITALS: BP 125/59
[2018-09-28 04:55] VITALS: BP 102/50
[2018-09-28 05:25] LABS: BASOPHILS % (AUTO) 1 % (0-10); EOSINOPHILS % (AUTO) 1 % (0-10); HEMATOCRIT 25 % (40-54); HEMOGLOBIN 8.1 G/DL (13.3-17.7); LYMPHOCYTES # (AUTO) 0.7 X 10^3 (1.0-4.0); LYMPHOCYTES % (AUTO) 14 % (12-44); MEAN CORPUSCULAR HEMOGLOBIN 34 PG (25-34); MEAN CORPUSCULAR HGB CONC 33 G/DL (32-36); MEAN CORPUSCULAR VOLUME 103 FL (80-99); MEAN PLATELET VOLUME 9.5 FL (7.4-10.4); MONOCYTES # (AUTO) 0.5 X 10^3 (0.0-1.0); MONOCYTES % (AUTO) 10 % (0-12); NEUTROPHILS # (AUTO) 3.8 X 10^3 (1.8-7.8); NEUTROPHILS % (AUTO) 75 % (42-75); RED CELL DISTRIBUTION WIDTH 25.2 % (10.0-14.5); WHITE BLOOD COUNT 5.1 10^3/uL (4.3-11.0)
[2018-09-28 05:26] LABS: PLATELET COUNT 24 10^3/uL (130-400)
[2018-09-28 05:37] LABS: ALANINE AMINOTRANSFERASE 10 U/L (0-55); ALBUMIN 3.2 GM/DL (3.2-4.5); ALKALINE PHOSPHATASE 64 U/L (40-136); BILIRUBIN,TOTAL 0.6 MG/DL (0.1-1.0); BUN/CREATININE RATIO 23; CALCIUM 8.4 MG/DL (8.5-10.1); CARBON DIOXIDE 25 MMOL/L (21-32); CHLORIDE 106 MMOL/L (98-107); CREATININE SERUM 1.07 MG/DL (0.60-1.30); GFR ESTIMATED > 60; GLUCOSE 93 MG/DL (70-105); POTASSIUM 4.1 MMOL/L (3.6-5.0); SODIUM 137 MMOL/L (135-145); TOTAL PROTEIN 5.3 GM/DL (6.4-8.2)
[2018-09-28] MEDS: CATHETER FLUSH 10 ML SYR IV SCH ×3 (05:48→20:57)
[2018-09-28 08:00] VITALS: BP 131/62
[2018-09-28] MEDS: PSYLLIUM POWDER (METAMUCIL) 5.8 GM PACKET PO SCH (09:13)
--- NOTE | 2018-09-28 10:27 | Occupational Ther Daily Note ---
OT Current Status-Daily Note Subjective Pt alert and willing to participate with OT services. Pt's jose present throughout duration of tx. She reports that pt is unaware of his deficits, and attempts to transfer himself and ambulate without assistance. Pain Numeric Pain Scale: 0-No Pain Mental Status/Objective Therapy Code Descriptions/Definitions Functional [place] Measure: 0=Not Assessed/NA 4=Minimal Assistance 1=Total Assistance 5=Supervision or Setup 2=Maximal Assistance 6=Modified [place] 3=Moderate Assistance 7=Complete [place] ADL-Treatment Grooming (FIM): 4 (CGA for grooming/hygiene while standing at sink with FWW. ) Lower Body Dressing (FIM): 4 ([place] to thread feet through pant legs.) Toileting (FIM): 4 (CGA for toileting with FWW and grab bars. Cont verbal cues required for proper use of FWW. ) Transfers (B, C, W/C) (FIM): 4 (CGA for functional transfers. ) Other Treatment Pt participated in bed mobility and functional ambulation with FWW and cont verbal cues for proper use of FWW and for fall prevention techniques. Pt fatigues quickly and requires seated rest breaks following 2 min of dynamic standing. Education OT Patient Education: Correct positioning, Energy conservation, Modified ADL techniques, Rehab process, Safety issues, Transfer techniques, Use of adapted equipment Teaching Recipient: Patient Teaching Methods: Demonstration, Discussion Response to Teaching: Verbalize Understanding, Return Demonstration, Reinforcement Needed OT Short Term Goals Short Term Goals Grooming(FIM): 5 Bathing(FIM): 5 Lower Body Dressing(FIM): 5 Toileting(FIM): 5 Transfers (B,C,W/C) (FIM): 5 Toilet/Commode Transfer(FIM): 5 1=Demonstrate adherence to instructed precautions during ADL tasks. 2=Patient will verbalize/demonstrate understanding of assistive devices/modifications for ADL. 3=Patient will improve strength/tolerance for activity to enable patient to perform ADL's. OT [facility] Goals Automation Lead Goals Eating (FIM): 6 Grooming(FIM): 6 Bathing(FIM): 6 Bathing Location: L Arm, R Arm, L Upper Leg, R Upper Leg, L Lower Leg (including foot), R Lower Leg (including foot), Chest, Abdomen, Buttocks, P erineal Area Lower Body Dressing(FIM): 6 Toileting(FIM): 6 Transfers (B,C,W/C) (FIM): 6 Toilet/Commode Transfer(FIM): 6 Additional Goals: 1-Demonstrate ADL Tasks, 2-Verbalize Understanding, 3- ImproveStrength/Jefry 1=Demonstrate adherence to instructed precautions during ADL tasks. 2=Patient will verbalize/demonstrate understanding of assistive devices/modifications for ADL. 3=Patient will improve strength/tolerance for activity to enable patient to perform ADL's. OT Education/Plan Problem List/Assessment pt presents with functional limitations affecting areas of ADL/ functional transfer with above mention deficits. pt would benefit from OT services to increase independence with ADLs/ functional transfers. Discharge Recommendations Plan/Recommendations: Continue POC Treatment Plan/Plan of Care Patient would benefit from OT for education, treatment and training to promote independence in ADL's, mobility, safety and/or upper extremity function for ADL's. Treatment Duration: Oct 11, 2018 Frequency: 5 times per week Estimated Hrs Per Day: .25 hour per day Agreement: Yes Rehab Potential: Fair Time/GCodes Start Time: 09:40 Stop Time: 10:27 Total Time Billed (hr/min): 47 Billed Treatment Time 1, ADL2. FA1 NOVA MALAVE OT Sep 28, 2018 10:27
--- NOTE | 2018-09-28 11:47 | NUR ---
Received request for social service consult. Pt and his present in his room. Pt's caregiver and granddaughter also present. Pt seemed confused and granddaughter states that their mother is the decision maker who is at work as a international trade manager for [employer] and won't be available till late afternoon.Will follow-up and meet with daughter to discuss continued care options. Provided list of area Home Health care aand hospice agencies at their request.
[2018-09-28 12:00] VITALS: BP 100/68
--- NOTE | 2018-09-28 13:23 | Progress Note-Standard ---
Standard Progress Note Progress Notes/Assess & Plan Date Seen by a Provider: Sep 28, 2018 Time Seen by a Provider: 13:19 Progress/Assessment & Plan 78-year-old male with dementia admitted with fatigue and fall at home. Noted to have borderline pancytopenia. Started on hydroxyurea 1 g twice a day approximately 2 weeks ago in [place] for probable diagnosis of leukemia. Clinically patient is better but unable to give any details due to dementia. Family not in room today at the time of evaluation. CBC showed platelet count of 24,000. No active bleeding. Awaiting pathology report from bone marrow aspiration and biopsy from [facility] in [place]. Continue with holding hydroxyurea. CLOTILDE MARKS Sep 28, 2018 13:23
--- NOTE | 2018-09-28 14:10 | NUR ---
Pastoral care visit
--- NOTE | 2018-09-28 15:02 | Physical Therapy Daily Note ---
PT Daily Note-Current Subjective Pt. on 1st visit in bathroom with nursing preparing to sit on toilet to attempt BM but having some difficulty understanding commands and very hesitant to sit on toilet even with much instruction and support from nurse assistance. Pt. states he is doubtful he will be up to moving around later. On second attempt , pt. in bed and declines bed exercise , sitting EOB and or ambulation. This MAINTENANCE MECHANIC HELPER sharing that activity and movement is important and that therapies will be back in the morning. Pt. responds " dont make it too early!" Transfers Therapy Code Descriptions/Definitions Functional [place] Measure: 0=Not Assessed/NA 4=Minimal Assistance 1=Total Assistance 5=Supervision or Setup 2=Maximal Assistance 6=Modified [place] 3=Moderate Assistance 7=Complete [place] Therapy Quality Codes: 6 Independent with activity with or without an assistive device 5 Patient requires set up or clean up by helper. Patient completes activity by themselves 4 Supervision or touching assist (CGA). Stewardson provide cues , steadying assist 3 The helper provides less than half the effort to complete the activity 2 The helper provides more than half the effort to complete the activity 1 Dependent. The helper does all the effort to complete an activity 7 Patient refused to complete or attempt activity 9 The patient did not perform the activity before the current illness or injury 88 Not attempted due to Medical conditions or safety concerns Weight Bearing Right Lower Extremity: Right Weight Bearing/Tolerated Left Lower Extremity: Left Weight Bearing/Tolerated Assessment Current Status: Refused Treatment PT Short Term Goals Short Term Goals Transfers (B,C,W/C) (FIM): 5 PT Management Trainee Marketing Goals Mcc Goals PT Mcc Goals Time Frame: Oct 08, 2018 Transfers (B,C,W/C) (FIM): 6 Gait (FIM): 6 Gait distance (FIM): 3=150 ft Distance: 250' Gait Level of Assist: 6 Gait Assistive Device: FWW PT Plan Treatment/Plan Treatment Plan: Continue Plan of Care Treatment Plan: Bed Mobility, Education, Functional Activity Jefry, Functional Strength, Gait, Safety, Therapeutic Exercise, Transfers Treatment Duration: Oct 08, 2018 Frequency: 6 times per week Estimated Hrs Per Day: .25 hour per day Patient and/or Family Agrees t: Yes Time/GCodes Time In: 1445 Time Out: 1450 Total Billed Treatment Time: 0 Total Billed Treatment 1,no RX, no chg G Codes Necessary: No MAIRA HOFF MAINTENANCE MECHANIC HELPER Sep 28, 2018 15:02
--- NOTE | 2018-09-28 15:36 | History & Physical-Hospitalist ---
History of Present Illness HPI/Chief Complaint the patient is an 78-year-old white male who presented to the emergency room with complaints of generalized weakness and falling. He is a poor historian but apparently came up here for the occasion of a granddaughter's graduation. He is now being relocated to this area because of family. He was said to have had an elevated white count for some years which was not treated. More recently the counts had gone up and we were told that the granulocyte count was 200,000 or thereabouts. He subsequently went to [place] and had a bone marrow. The results are not currently available to us. He was then started on hydroxyurea after which his symptoms seemed to increase. Source: family Exam Limitations: no limitations Date Seen 09/28/18 Time Seen by a Provider: 15:10 Attending Physician Luke Lopez MD PCP No,Local Physician Referring Physician Date of Admission Sep 27, 2018 at 11:54 Home Medications & Allergies Home Medications Reviewed patient Home Medication Reconciliation performed by pharmacy medication reconciliations heating repair technician and/or nursing. Patients Allergies have been reviewed. Allergies Allergies Coded Allergies No Known Drug Allergies (Unverified09/27/18) Past Gasegmk-Amtlik-Xkkdzm Hx Past Med/Social Hx: Reviewed Nursing Past Med/Soc Hx, Reviewed and Corrections made Patient Social History Alcohol Use: Denies Use Recreational Drug Use: No Smoking Status: Never a Smoker 2nd Hand Smoke Exposure: No Recent Foreign Travel: No Contact w/other who traveled: No Recent Infectious Disease Expo: No Past Medical History Surgeries: Bladder Surgery (bladder stimulator), Cardiac (ablation), CABG, Coronary Stent, Orthopedic (hip with hardware, back), Vascular Surgery (IVC filter) Cardiac: Coronary Artery Disease, Hypertension Neurological: Dementia, Seizure Disorder, Stroke Gastrointestinal: Chronic Constipation Musculoskeletal: Gout Endocrine: Hypothyroidsim Cancer: Leukemia, Skin Did You Recieve Any Treatments: Yes What Type of Treatment Did You: Chemotherapy, Surgical Intervention Review of Systems Constitutional: other EENTM: no symptoms reported Respiratory: no symptoms reported Cardiovascular: no symptoms reported Gastrointestinal: loss of appetite Musculoskeletal: muscle weakness Skin: lesions Psychiatric/Neurological: No Symptoms Reported Physical Exam Physical Exam Vital Signs Vital Signs - First Documented 09/27/18 08:44 Temp 98.0 Pulse 60 Resp 18 B/P (MAP) 106/58 (74) Pulse Ox 99 O2 Delivery Room Air Capillary Refill : Less Than 3 Seconds Height, Weight, BMI Height: 6'1.00" Weight: 160lbs. 3.0oz. [id number]; 21.1 BMI Method:Estimated General Appearance: Mild Distress Eyes: Bilateral Eye Normal Inspection HEENT: Normal ENT Inspection Neck: Full Range of Motion Respiratory: Decreased Breath Sounds Cardiovascular: Regular Rate, Rhythm Results Results/Procedures Labs Laboratory Tests 09/27/18 08:50 09/28/18 05:05 Patient resulted labs reviewed. Clinical Quality Measures DVT/VTE Risk/Contraindication: Risk Factor Score Per Nursin RFS Level Per Nursing on Admit: 4+=Very High LUKE LOPEZ MD Sep 28, 2018 15:36
[2018-09-28] MEDS: NS IV 1000 ML 1,000 ML IV SCH (15:52)
[2018-09-28 16:26] VITALS: BP 127/63
[2018-09-28 20:59] VITALS: BP 131/61
[2018-09-29] VITALS: BP 131/62
[2018-09-29] MEDS: NS IV 1000 ML 1,000 ML IV SCH ×2 (02:21→05:16)
[2018-09-29 04:05] VITALS: BP 137/67
[2018-09-29] MEDS: CATHETER FLUSH 10 ML SYR IV SCH ×2 (05:17→14:24)
[2018-09-29 08:00] VITALS: BP 145/66
[2018-09-29] MEDS ORDERED: ACETAMINOPHEN 325 MG TABLET ONE (08:05)
[2018-09-29] MEDS ORDERED: ACETAMINOPHEN 325 MG TABLET PO NR (08:15)
[2018-09-29] MEDS ORDERED: NITROGLYCERIN 0.4 MG SL TABS BTL 25'S SL ONE (08:15)
[2018-09-29 09:00] VITALS: BP 138/63
--- NOTE | 2018-09-29 09:45 | Physical Therapy Daily Note ---
PT Daily Note-Current Subjective Patient continues to be confused. Family present and patient agrees to PT. Pain Numeric Pain Scale: 0-No Pain Location: No Pain Reported Mental Status Patient Orientation: Confused Attachments: IV Transfers Therapy Code Descriptions/Definitions Functional [place] Measure: 0=Not Assessed/NA 4=Minimal Assistance 1=Total Assistance 5=Supervision or Setup 2=Maximal Assistance 6=Modified [place] 3=Moderate Assistance 7=Complete [place] Therapy Quality Codes: 6 Independent with activity with or without an assistive device 5 Patient requires set up or clean up by helper. Patient completes activity by themselves 4 Supervision or touching assist (CGA). Jackson provide cues , steadying assist 3 The helper provides less than half the effort to complete the activity 2 The helper provides more than half the effort to complete the activity 1 Dependent. The helper does all the effort to complete an activity 7 Patient refused to complete or attempt activity 9 The patient did not perform the activity before the current illness or injury 88 Not attempted due to Medical conditions or safety concerns Transfers (B, C, W/C) (FIM): 6 Scootin Rollin Supine to/from Sit: 6 Sit to/from Stand: 6 Bed to/from Chair: 6 Weight Bearing Right Lower Extremity: Right Weight Bearing/Tolerated Left Lower Extremity: Left Weight Bearing/Tolerated Gait Training Gait (FIM): 6 Distance (FIM): 3=150 ft Distance: 900' Gait Level of Assist: 6 Gait Assistive Device: FWW safe and functional gait sequence/PT instructed family to ambulate with patient PRN in hallway prior to possible dismissal Assessment Patient is up in recliner with needs met. Patient has improved with gross motor skills and is currently at PLOF with all gross motor skills and is safe to ambulate with family PRN in hallway. PT to dismiss patient from services at this time with family agreeing with POC. PT Short Term Goals Short Term Goals Transfers (B,C,W/C) (FIM): 5 PT Skilled Nursing Goals Dough Braker Goals PT Dough Braker Goals Time Frame: Oct 08, 2018 Transfers (B,C,W/C) (FIM): 6 Gait (FIM): 6 Gait distance (FIM): 3=150 ft Distance: 250' Gait Level of Assist: 6 Gait Assistive Device: FWW PT Plan Treatment/Plan Treatment Plan: Discontinue PT, goals met Treatment Plan: Bed Mobility, Education, Functional Activity Jefry, Functional Strength, Gait, Safety, Therapeutic Exercise, Transfers Treatment Duration: Oct 08, 2018 Frequency: 6 times per week Estimated Hrs Per Day: .25 hour per day Patient and/or Family Agrees t: Yes Time/GCodes Time In: 835 Time Out: 859 Total Billed Treatment Time: 24 Total Billed Treatment 1 visit FA x 2 24 min CJ ALVAREZ PT Sep 29, 2018 09:45
[2018-09-29] MEDS: PSYLLIUM POWDER (METAMUCIL) 5.8 GM PACKET PO SCH (09:59)
--- NOTE | 2018-09-29 10:29 | NUR ---
Met with Alisson,pt's Daughter in law and one of his DPOA's.She states that they want pt to return to their home and family will provide his care. They expressed interest in Hospice services and did contact [facility] for possible informational visit at their home on date of discharge. Alisson also met with Dr. Sher and results of his recent bone marrow from [facility] in [place] were reviewed. Kesha described pt as having frequent fainting spells at home and apparently he experienced one here this morning. Alisson would like to know pt's diagnosis and prognosis before making definite continued care plans.
[2018-09-29 12:00] VITALS: BP 139/62
--- NOTE | 2018-09-29 15:13 | Progress Note-Hospitalist ---
Progress Note Progress Notes/Assess & Plan Date Seen 09/29/18 Time Seen by Provider: 15:07 Assessment & Plan The patient reports feeling better and stronger. He has been able to get by himself to the bathroom. He and I then walked in the hallway. He used his walker and covered at least 50 feet with out support. I discussed him with Dr. Sher. He has received the path report from [facility] which reveals him to have chronic myelogenous leukemia. His chemotherapy will be changed and he is to return to the cancer center and about 1-2 weeks to initiate this. Physical exam: He requires cueing and repeating of instructions. Lungs are clear to auscultation breath sounds are distant. CV is regular. There is no pedal edema. Impression: Chronic myelogenous leukemia. 2.oral chemotherapy induced thrombo cytopenia and if the history is correct marked decline from 200,000 WBCs too 4000 mL DILIP LOPEZ MD Sep 29, 2018 15:13
--- NOTE | 2018-09-29 15:37 | Discharge Inst-Simple/Standard ---
Discharge Inst-Standard Patient Instructions/Follow Up Plan of Care/Instructions/FU: Medications as listed on the discharge sequence. An appointment has been scheduled for you to see Dr. Sher as an outpatient. Increase activity as tolerated. Use your walker. Activity as Tolerated: Yes Discharge Diet: No Restrictions Planned Outpatient Orders/Ref. Pneu Vac Indicated: Yes DILIP LOPEZ MD Sep 29, 2018 15:37
[2018-09-29 15:39] VITALS: BP 121/45
--- NOTE | 2018-09-29 17:09 | NUR ---
met with pt and family prior to discharge.Dr. Sher met with pt and family also to discuss pt's blood disorder diagnosis and provided them written information.He also discussed treatment option and follow-up appt was given to pt for [facility]. Pt and family have also obtained information from [facility] and plan to take pt home and discuss continued treatment and care plans.
--- NOTE | 2018-09-29 17:22 | Progress Note-Standard ---
Standard Progress Note Progress Notes/Assess & Plan Date Seen by a Provider: Sep 29, 2018 Time Seen by a Provider: 17:16 Progress/Assessment & Plan 78-year-old male with dementia admitted with fatigue and fall at home. Noted to have borderline pancytopenia. Started on hydroxyurea 1 g twice a day approximately 2 weeks ago in [place] for probable diagnosis of leukemia. Clinically patient is better but unable to give any details due to dementia. Pathology report from [facility] in [place] from bone marrow aspiration and biopsy showed chronic myeloid leukemia with t(9:22). Reviewed the diagnosis and prognosis with his family and answered their questions. Printed information regarding CML from [employer] website was given to them. Informed them that standard treatment is targeted therapy with TKI's like Gleevec. I also discussed the option of no active treatment and best supportive care especially because of his dementia. They wanted to proceed with treatment. We will work on obtaining Gleevec prior authorized in the next one to 2 weeks. Patient will have a tentative teaching session with Jazmine Sullivan APRN in 2 weeks. In the interim I advised them to withhold hydroxyurea because of significant thrombocytopenia and pancytopenia. Continue home physical therapy for strengthening. Patient is be ing discharged later today. CLOTILDE MARKS Sep 29, 2018 17:22
== END 2018-09-29 16:56 | disposition home or self-care (01) ==
LOC: ER 08:44 → 4TH 11:54 → INTOOBSV 11:54 → 4TH 09-28 13:28
PROVIDERS: ADMIT Internal Medicine; ATTEND Internal Medicine
DX: C92.10 Chronic myeloid leukemia, BCR/ABL-positive, not having achieved remission (principal); D69.59 Other secondary thrombocytopenia; D61.810 Antineoplastic chemotherapy induced pancytopenia; F03.90 Unspecified dementia, unspecified severity, without behavioral disturbance, psychotic disturbance, mood disturbance, and anxiety; I25.10 Atherosclerotic heart disease of native coronary artery without angina pectoris; I10 Essential (primary) hypertension; G40.909 Epilepsy, unspecified, not intractable, without status epilepticus; K59.09 Other constipation; Z66 Do not resuscitate; M10.9 Gout, unspecified; E03.9 Hypothyroidism, unspecified; Z85.828 Personal history of other malignant neoplasm of skin; Z92.21 Personal history of antineoplastic chemotherapy; Z95.5 Presence of coronary angioplasty implant and graft; Z95.1 Presence of aortocoronary bypass graft; Z91.81 History of falling
CPT/HCPCS: 36415; 70450; 71045; 72125; 72170; 80053; 81000; 83735; 84439; 84443; 85025; 90471; 90715; 93005; 96360; 96361; G0378